=== PATIENT | male | born 1990 | race Caucasian/White ===

== ENCOUNTER 2019-04-11 05:50 | Inpatient (IN) | payer OTHER ==
[2019-04-08 13:24] VITALS: BMI 22.8
[2019-04-11] MEDS ORDERED: Sodium Chloride 0.9% 10 ML ONE (06:36)
[2019-04-11 06:45] LABS: #Basophils 0.1 thou/uL (0.0-0.2); #Eosinphils 0.1 thou/uL (0.0-0.7); #Lymphocytes 3.1 thou/uL (1.20-3.40); #Monocytes 0.3 thou/uL (0.11-0.59); #Neutrophils 2.9 thou/uL (1.40-6.50); %Basophils 1.1 % (0.0-1.0); %Eosinophils 1.1 % (0.0-10.0); %Lymphocytes 47.8 % (21.0-51.0); %Neutrophils 45.1 % (42.0-75.0); Hemoglobin 14.3 g/dL (14.0-18.0); Mean Corpuscular HGB CONC 36.3 g/dL (32.0-36.0); Mean Corpuscular Hemoglobin 32.9 pg (27.0-31.0); Mean Corpuscular Volume 90.5 fL (78.0-98.0); Mean Platelet Volume 8.1 fL (7.4-10.4); Platelet Count 207 thou/uL (130-400); RBC Distribution Width 11.5 % (11.5-14.5); Red Blood Cell (RBC) Count 4.35 mill/uL (4.70-6.10); White Blood Cell (WBC) Count 6.5 thou/uL (4.8-10.8)
[2019-04-11] MEDS ORDERED: Fentanyl 250 MCG/5 ML VIAL ONE (06:46)
[2019-04-11] MEDS ORDERED: SUGAMMADEX SODIUM 500 MG/5 ML VIAL ONE (06:46)
[2019-04-11 07:04] LABS: Anion Gap 11 mmol/L (10-20); BUN (Urea Nitrogen) 14 mg/dL (8.9-20.6); Calc. Creatinine Clearance 128 mL/min (70-130); Calcium 9.4 mg/dL (7.8-10.44); Carbon Dioxide 26 mmol/L (22-29); Chloride 109 mmol/L (98-107); Estimated GFR-MDRD Greater than 90; Glucose 90 mg/dL (70-105); Sodium 142 mmol/L (136-145)
[2019-04-11] MEDS ORDERED: Midazolam HCl 2 mg/2 ml Vial ONE (07:09)
[2019-04-11] MEDS ORDERED: Meperidine HCl/PF 25 MG/ML VIAL SLOW IVP PRN (08:38)
[2019-04-11] MEDS ORDERED: Promethazine HCl 25 MG/ML VIAL SLOW IVP PRN (08:38)
[2019-04-11] MEDS ORDERED: Ondansetron HCl/PF 4 MG/2 ML Vial IVP PRN (08:38)
[2019-04-11] MEDS ORDERED: HYDROmorphone 2 MG/ML VIAL SLOW IVP PRN (08:38)
[2019-04-11] MEDS ORDERED: Morphine Sulfate 2 MG/ML SYRINGE SLOW IVP PRN (08:38)
[2019-04-11] MEDS ORDERED: Promethazine HCl 25 MG/ML VIAL IM PRN ×2 (08:38→09:04)
[2019-04-11] MEDS ORDERED: PACU-Morphine 4MG/ML VIAL SLOW IVP PRN (08:38)
[2019-04-11] MEDS ORDERED: Fentanyl 100 MCG/2 ML VIAL ONE ×3 (08:48→10:41)
[2019-04-11] MEDS ORDERED: Ketorolac Tromethamine 30 MG/ML VIAL ONE (08:51)
[2019-04-11] MEDS ORDERED: traMADol HCl 50 MG TAB PO PRN ×2 (09:04)
[2019-04-11] MEDS ORDERED: Promethazine 25 MG TAB PO PRN (09:04)
[2019-04-11] MEDS ORDERED: HYDROcodone/Acetaminophen 10/325 mg Tablet PO PRN (09:04)
[2019-04-11] MEDS ORDERED: diphenhydrAMINE 50 MG/ML VIAL IVP PRN (09:04)
[2019-04-11] MEDS ORDERED: Mag-Al 1200 mg/1200 mg/30 ML UDCUP PO PRN (09:04)
[2019-04-11] MEDS ORDERED: tiZANidine HCl 4 MG TAB PO PRN (09:04)
[2019-04-11] MEDS ORDERED: Promethazine HCl 12.5 MG SUPP PR PRN (09:04)
[2019-04-11] MEDS ORDERED: Milk Of Magnesia 30 ML UDCUP PO PRN (09:04)
[2019-04-11] MEDS ORDERED: Ondansetron PF 4 MG/2 ML Vial IM PRN (09:04)
[2019-04-11] MEDS ORDERED: Morphine 2 MG/ML SYRINGE SLOW IVP PRN (09:15)
[2019-04-11] MEDS ORDERED: HYDROmorphone 2 MG/ML VIAL ONE (10:46)
[2019-04-11] MEDS ORDERED: Lidocaine 1% PF 5 ML VIAL ONE (12:00)
[2019-04-11] MEDS ORDERED: Rocuronium Bromide 10 MG/ML (10ML VIAL) ONE (12:00)
[2019-04-11] MEDS ORDERED: PROPOFOL 200 MG/20 ML VIAL ONE (12:00)
[2019-04-11] MEDS ORDERED: Ondansetron PF 4 MG/2 ML Vial ONE (12:00)
[2019-04-11] MEDS ORDERED: Glycopyrrolate 0.2 MG/ML 5 ML SYRINGE ONE (12:00)
[2019-04-11] MEDS ORDERED: Ketorolac Tromethamine 30 MG/ML VIAL IVP SCH (12:00)
[2019-04-11] MEDS ORDERED: Dexamethasone 20 MG/5 ML VIAL ONE (12:00)
[2019-04-11] MEDS: Morphine 4 MG/ML VIAL SLOW IVP PRN ×2 (12:05→14:39)
--- NOTE | 2019-04-11 13:15 | OP ---
DATE OF PROCEDURE: 04/11/2019 PERITONEAL DIALYSIS REGISTERED NURSE: Parveen Dowling PA-C PROCEDURES PERFORMED: Right L5-S1 laminectomy, facetectomy, foraminotomy, and diskectomy, interbody arthrodesis, intervertebral biomechanical device, local morselized autograft, demineralized bone matrix, posterolateral arthrodesis, pedicle screw instrumentation, L5-S1. DESCRIPTION OF PROCEDURE: The patient was brought to the operating room and intubated. He was rolled in the prone position on gel-filled chest rolls. An incision was made exposing L5 and S1 and the level was confirmed by x-ray. The patient had obvious pars defect on the right with complete looseness of the posterior elements. We performed a right L5-S1 laminectomy, facetectomy, foraminotomy, and then diskectomy, completely decompressing the neural elements. The disk itself was quite watery and slightly protuberant. The disk itself was completely removed. Then, the bony endplates decorticated for the purpose of arthrodesis. An appropriate-sized intervertebral biomechanical PEEK device was brought into the field, filled with demineralized bone matrix, local morselized autograft, and tapped in place securely at L5-S1. Next, pedicle screws were placed at right L5 and right S1 using lateral fluoroscopic guidance and positioning was confirmed by x-ray. Dario was secured between the screws and connected by nuts. Compression was applied and all nuts were final tightened. The wound was then extensively irrigated and MAC hemostasis was secured. A combination of demineralized bone matrix and local morselized autograft was laid over the lamina and posterolateral surfaces for the purpose of arthrodesis. Vancomycin powder was applied and the wound was then closed in anatomic layers. Job ID: [id number]
[2019-04-11] MEDS: Methocarbamol 500 MG TAB PO SCH ×3 (13:16→20:20)
[2019-04-11] MEDS ORDERED: CEFAZOLIN 2 GM in Premix Bag 1 BAG IVPB SCH (14:00)
[2019-04-11] MEDS: HYDROcodone/Acetaminophen 10/325 mg Tablet PO PRN ×2 (16:04→20:20)
[2019-04-11] MEDS: CEFAZOLIN 2 GM in Premix Bag 1 BAG IVPB SCH ×2 (16:04→22:11)
[2019-04-11] MEDS: Ketorolac Tromethamine 30 MG/ML VIAL IVP SCH ×2 (16:11→22:00)
[2019-04-11] MEDS: Sodium Chloride 0.9% 1,000 ML IV SCH ×2 (17:57→22:30)
[2019-04-11] MEDS: diphenhydrAMINE 25 MG CAP PO PRN (20:20)
[2019-04-12] MEDS: HYDROcodone/Acetaminophen 10/325 mg Tablet PO PRN ×4 (00:32→15:44)
[2019-04-12] MEDS: Ketorolac Tromethamine 30 MG/ML VIAL IVP SCH ×3 (03:29→15:19)
[2019-04-12] MEDS: diphenhydrAMINE 25 MG CAP PO PRN (06:24)
--- NOTE | 2019-04-12 07:24 | PRG ---
DATE OF SERVICE: 04/12/2019 SUBJECTIVE: The patient is a 28-year-old male, recently seen in our office for progressive back pain and right leg pain, found to have degenerative disk disease at L5-S1, who underwent L5-S1 diskectomy and fusion. Following the surgery, he was transitioned to the Med/Surg floor. He did have some issues with pain control initially, but this has improved with time. He is now tolerating his pain with p.o. medications. The patient is tolerating a regular diet without difficulty. He is voiding appropriately. He has been up ambulating short distances with physical therapy. On exam this morning, the patient is awake, alert, in no acute distress. Free active range of motion of all extremities. No focal motor weakness is appreciated. Incision is dry and intact. The patient has been somewhat slow to mobilize, initially had pain control issues. This is improving as time goes on. I will plan to check on the patient this afternoon. He may be able to discharge later today. If not, I anticipate discharge home in the next 1 to 2 days. Job ID: [id number]
[2019-04-12] MEDS: Methocarbamol 500 MG TAB PO SCH ×2 (08:06→13:00)
[2019-04-12] MEDS: Sodium Chloride 0.9% 1,000 ML IV SCH (10:57)
[2019-04-12 15:07] VITALS: BP 140/88; TEMP 98.5
--- NOTE | 2019-04-13 02:07 | DIS ---
DATE OF ADMISSION: 04/11/2019 DATE OF DISCHARGE: 04/12/2019 HISTORY OF PRESENT ILLNESS: The patient is a 28-year-old male, status post L5-S1 diskectomy and fusion. Following the surgery, he was transitioned to the Med/Surg floor, where his pain was controlled with p.o. medications, he was tolerating a regular diet, and he was voiding appropriately. He worked and walked throughout the halls with Physical Therapy. On exam this morning, patient is awake, alert, in no acute distress. He has free active range of motion of all extremities. No focal neurologic deficits are appreciated. His incision has remained dry and intact. We will plan to discharge the patient home. I discussed home care precautions. The patient will follow up in 2 weeks. Job ID: [id number]
[2019-04-14] MEDS ORDERED: Etodolac 200 MG CAP PO SCH (21:00)
== END 2019-04-12 15:52 | disposition home or self-care (01) | DRG 460 ==
LOC: SURG A 05:50 → SJJU 11:46
PROVIDERS: ADMIT Neurological Surgery; ATTEND Neurological Surgery
PROC: 0SG30AJ Fusion of Lumbosacral Joint with Interbody Fusion Device, Posterior Approach, Anterior Column, Open Approach (ICD-10-PCS; principal; 2019-04-11)
PROC: 0SB40ZZ Excision of Lumbosacral Disc, Open Approach (ICD-10-PCS; 2019-04-11)
DX: M54.17 Radiculopathy, lumbosacral region (principal)
CPT/HCPCS: 76000; 80048; 85025; 93005; 93010; C1713; C1768; J0690; J1100; J1170; J1885; J2001; J2250; J2270; J2405; J2704; J3010; J3370; J3490; Q0163

== ENCOUNTER 2019-04-27 10:21 | Outpatient (CLI) | payer OTHER ==
--- NOTE | 2019-04-27 12:26 | RAD ---
LUMBAR SPINE 2 VIEWS: HISTORY: Lumbar radiculopathy. FINDINGS: Pedicle screws on the right at L5-S1 with interbody implant at L5-S1. 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 Minimal anterolisthesis at L5-S1. Disk spaces are preserved. Alignment is otherwise maintained . IMPRESSION: Postoperative changes at L5-S1 as described. POS: OFF
== END 2019-04-27 10:22 | disposition home or self-care (01) ==
LOC: RAD 10:21 → TBSIIMAG 10:22
PROVIDERS: ATTEND Neurological Surgery
DX: M54.16 Radiculopathy, lumbar region (principal); Z98.890 Other specified postprocedural states
CPT/HCPCS: 72100

== ENCOUNTER 2019-06-09 13:32 | Outpatient (CLI) | payer OTHER ==
--- NOTE | 2019-06-09 13:52 | RAD ---
TWO VIEWS LUMBAR SPINE: 06/09/19 HISTORY: Disc degenerative changes. Patient complains of right leg pain and numbness. This is a follow-up exam ination for spinal fusion. COMPARISON: 04/27/19. FINDINGS: Again noted are postsurgical changes at the lumbosacral junction with unilateral right sided pedicula r screws and posterior janusz again transfixing this level. Intradiscal prosthesis at this level is stab le in position. No hardware complication is seen. There is no fracture or subluxation involving the lumbar spine. There has been no interval change fro m prior exam. IMPRESSION: Stable postoperative changes lumbosacral junction. POS: [facility]
== END 2019-06-09 13:33 | disposition home or self-care (01) ==
LOC: TBSIIMAG 13:32
PROVIDERS: ATTEND Neurological Surgery
DX: M51.36 Other intervertebral disc degeneration, lumbar region (principal); Z98.890 Other specified postprocedural states
CPT/HCPCS: 72100

== ENCOUNTER 2019-09-06 13:40 | Outpatient (CLI) | payer OTHER ==
--- NOTE | 2019-09-06 13:54 | RAD ---
Exam: 2 VIEW LUMBAR SPINE: COMPARISON: 06/09/2019. HISTORY: Lumbar radiculopathy. Status post lumbar fusion. FINDINGS: Redemonstration of 5 lumbar type vertebra. Right-sided transpedicular screw at L5 and S1 is redemonstrated. No perihardware lucency. There is a disc prosthesis at L5-S1. 1.9 mm of anterolisthesis of L5 upon S1. IMPRESSION: Redemonstration of lumbar fusion. Interval grade 1 anterolisthesis of L5 upon S1. Transcribed Date/Time: 09/06/2019 2:09 PM
== END 2019-09-06 13:41 | disposition home or self-care (01) ==
LOC: TBSIIMAG 13:40
PROVIDERS: ATTEND Neurological Surgery
DX: M54.16 Radiculopathy, lumbar region (principal); M43.17 Spondylolisthesis, lumbosacral region; Z98.1 Arthrodesis status
CPT/HCPCS: 72100